=== PATIENT | male | born 1990 | race Caucasian/White ===

== ENCOUNTER → 2021-01-02 | Outpatient (CLI) | payer BC ==
--- NOTE | 2021-01-02 15:44 | EST ---
EXERCISE STRESS AGE: 30 SEX: M HT: 5'10" WT: 215 lbs. PROTOCOL: Adal STAGE: 5 DURATION OF EXERCISE: 12:30 HEART RATE REST: 71 BLOOD PRESSURE REST: 132/95 MAXIMUM HEART RATE ACHIEVED: 180 MAXIMUM BLOOD PRESSURE: 190/63 85% MPHR: 130 100% MPHR: 188 METS: 13.0 INDICATIONS: Family history of coronary artery disease. CLINICAL INFORMATION: Baseline EKG shows sinus rhythm, normal axis, normal intervals. Patient exercised on Adal protocol for a total of 12-1/2 minutes, achieving a 14 METS, 96% of predicted maximal heart rate, without chest pain or diagnostic ST-segment depression. CONCLUSIONS: 1. Excellent exercise tolerance. 2. Negative stress test by EKG criteria. MMODL / IJN: [id number] /
== END | disposition home or self-care (01) ==
LOC: RADNMMAIN 08:35
PROVIDERS: ATTEND Nurse Practitioner
DX: Z04.89 Encounter for examination and observation for other specified reasons (principal); Z82.49 Family history of ischemic heart disease and other diseases of the circulatory system
CPT/HCPCS: 93017